=== PATIENT | male | born 1935 | race Caucasian/White ===

== ENCOUNTER → 2019-07-27 | Outpatient (CLI) | payer OTHER ==
[~2019-07-27] MED LIST: ADULT LOW DOSE81 MG PO; ALLEGRA180 MG PO; AMARYL1 MG PO; AMARYL2 MG PO; ASPIR 8181 MG PO; CALCIUM 600 +1 EAC1 PO; CALCIUM 600 +1 EAC2 PO; CELEBREX 200 M200 MG PO; CENTRUM SILVER1 EAC1 PO; COLACE100 MG PO; COZAAR 25 MG TA25 M1 PO; DARVOCET-N 1001 EACH PO; FERREX 150150 MG PO; FOSAMAX 70 MG T70 M1 PO; GLUCOPHAGE XR500 MG PO; GLUCOSAMINE &1 EACH PO; HYDROCODONE-AP1 EAC6 PO; KLOR-CON 1010 MEQ PO; LASIX 40 MG TAB40 M2 PO; LOPRESSOR25 PO; LOVASTAT40; LOVASTATIN 20 M20 MG PO; LYRICA 50 MG50 MG PO; METFORMIN HCL500 MG PO; MOBIC15 MG PO; MULTI VITAMIN1 EACH PO; NASONEX17 GM NASAL; PHENERGAN25 MG PO; PREVACID15 MG PO; PREVACID30 M1 PO; PREVACID30 MG PO; TYLENOL325 MG PO; VITAMIN B-12500 MCG PO; VITAMIN D1000 UNI1 PO; VITAMINC500 PO; ZANAFLEX4 MG PO; [UNRECOGNIZED DRUG - OTHER] PO
== END ==
LOC: SJCVCIMAG 10:15
DX: I07.1 Rheumatic tricuspid insufficiency (principal); I11.9 Hypertensive heart disease without heart failure; I25.10 Atherosclerotic heart disease of native coronary artery without angina pectoris; R06.00 Dyspnea, unspecified; Z95.2 Presence of prosthetic heart valve; Z72.89 Other problems related to lifestyle

== ENCOUNTER → 2020-02-15 | Outpatient (CLI) | payer OTHER | LOC: SJCVCIMAG 06:26 | PROVIDERS: ATTEND Internal Medicine Cardiovascular Disease | DX: I25.10 Atherosclerotic heart disease of native coronary artery without angina pectoris (principal); I10 Essential (primary) hypertension; E78.00 Pure hypercholesterolemia, unspecified; R60.9 Edema, unspecified; R06.00 Dyspnea, unspecified; R60.0 Localized edema; Z79.82 Long term (current) use of aspirin; Z79.2 Long term (current) use of antibiotics; Z79.52 Long term (current) use of systemic steroids ==

== ENCOUNTER → 2020-10-09 | Outpatient (CLI) | payer OTHER | LOC: SJCVC 09:38 | PROVIDERS: ATTEND Internal Medicine Cardiovascular Disease | DX: R94.31 Abnormal electrocardiogram [ECG] [EKG] (principal); I45.2 Bifascicular block; I25.10 Atherosclerotic heart disease of native coronary artery without angina pectoris; I10 Essential (primary) hypertension; E78.00 Pure hypercholesterolemia, unspecified; R60.9 Edema, unspecified; E11.40 Type 2 diabetes mellitus with diabetic neuropathy, unspecified; R60.0 Localized edema; Z79.82 Long term (current) use of aspirin; Z79.899 Other long term (current) drug therapy; Z79.84 Long term (current) use of oral hypoglycemic drugs; Z95.2 Presence of prosthetic heart valve; Z88.1 Allergy status to other antibiotic agents; Z88.5 Allergy status to narcotic agent; Z72.89 Other problems related to lifestyle ==